=== PATIENT | male | born 1975 | race Caucasian/White ===

== ENCOUNTER 2017-11-12 16:34 | Emergency (ER) | payer MEDICAID, SELFPAY ==
[2017-11-12 16:35] VITALS: BP 147/96; PULSE 98; RESP 16; TEMP 36.6; O2SAT 95; BMI 40.9
[2017-11-12 17:41] LABS: Bacteria 0 SEEN /hpf (None Seen); White Blood Cells 0 SEEN /hpf (0-5)
--- NOTE | 2017-11-12 17:45 | CT_ITS ---
STUDY: CT ABDOMEN AND PELVIS WITHOUT CONTRAST REASON FOR EXAM: Male, 42 years old. Left flank pain RADIATION DOSAGE (If Supplied By Facility): CTDIvol = ( 24.18 ) mGy, DLP = ( 1250.39 ) mGycm TECHNIQUE: Transaxial images were obtained from the dome of the diaphragm to the symphysis pubis without oral contrast, and without intravenous contrast. Sagittal and coronal images were reconstructed. Individualized dose optimization techniques were used for this CT. COMPARISON: None. FINDINGS: The visualized lung bases are unremarkable. The visualized portions of the heart are within normal limits. Slightly fatty liver. Normal gallbladder and extrahepatic biliary system. Normal spleen. Normal pancreas. Normal bilateral adrenal glands. Probably 1 cm hyperdense cyst of the right kidney. Normal left kidney. Normal visualized stomach. Normal small intestine. Questionable mild rectal wall thickening. The appendix is visualized and appears normal. Normal abdominal aorta. Normal inferior vena cava. Normal retroperitoneum. Normal urinary bladder. Normal abdominal wall. Normal osseous structures. CT/Abdomen/Pelvis without Cont IMPRESSION: Probable hyperdense right renal cyst. No renal stones or hydronephrosis bilaterally. Possible mild wall thickening of the rectum. Electronically Signed: Ronni Sutherland DO at 18:53 EDT Tel [phone], Service support ,
--- NOTE | 2017-11-12 17:47 | ED.DCSUM_ITS ---
- ER Visit Summary Date of Service: 11/12/17 Chief Complaint: Left flank pain History of Present Illness: The patient is a 42 M presenting with left flank pain which started at 1 PM. Patient states he has a history of a cyst in his kidney. He was supposed to have 6 month follow-up with a urologist. He states he lost his insurance and did not follow-up. He recently regained his insurance and has an appointment in 3 months. He states this morning he was moving [employer]. He then began having pain in his left lower back. No bowel or bladder incontinence. No numbness or weakness. No blood in his urine. No other complaints. Physical Examination: Vitals are stable. Patient is afebrile. Alert no acute distress. HEENT exam is unremarkable. Neck is supple. Lungs are clear and equal bilaterally. Heart is regular rate and rhythm. Abdomen is soft nontender nondistended. Back: Left CVA tenderness Extremities are unremarkable. Skin is warm and dry. No focal neurologic deficit. Remainder of exam is unremarkable. Emergency Department Course and Treatment: Patient given morphine, Zofran IV with improvement. CBC, chemistries unremarkable. Urinalysis shows trace blood , 0 white cells, 0-[address] abdomen and pelvis shows probable hyperdense right renal cyst. No renal stones or hydronephrosis bilaterally. Possible mild wall thickening of the rectum. He is advised of CT scan findings and advised to follow-up with his urologist and his PCP. Patient understands importance of close follow-up. He is advised return to ED for any worsening complaints. Disposition: Discharge home Impression: Left flank pain This note was generated with [employer] ([employer]) dictation software. It may contain incorrect words, spelling, and punctuation that were not noted in review of the chart prior to signing ED Disposition - Plan for ED Patient: Chief Complaint: Flank Pain Referrals: Doug Jeter DO [Primary Care Provider] -
[2017-11-12 17:53] LABS: Color, Urine Yellow (Yellow); Glucose, Dipstick Normal (Normal); Ketone-Dipstick 5 mg/dl (Negative); Leukocyte Esterase-Dipstick Negative /ul (Negative); Nitrite-Dipstick Negative (Negative); Occult Blood-Urine 10 /ul (Negative); Protein-Dipstick 15 mg/dl (Negative); Specific Gravity, Urine 1.025 (1.002-1.030); Urine Bilirubin Dipstick Negative (Negative); Urine Clarity Sl. Cloudy (Clear); Urine Urobilinogen 1 mg/dl (Normal)
[2017-11-12] MEDS: Morphine 4 MG/ML Syringe IV (18:15)
[2017-11-12] MEDS: Ondansetron 4 MG/2 ML Vial IV (18:16)
[2017-11-12 18:33] LABS: Absolute Neutrophil Count 4.4 X10^3/uL (2.0-7.7); Basophil# 0.03 X10^3/uL; Basophil% 0.4 % (0-1); Eosinophil# 0.22 X10^3/uL; Eosinophils% 3.2 % (0-5); Hematocrit 43.4 % (40-54); Hemoglobin 14.6 g/dl (13.0-16.5); Lymphocyte % 25.9 % (19-41); Mean Corp Hgb Conc 33.6 g/gl (32-36); Mean Corpuscular Volume 92.1 fL (80-94); Mean Platelet Vol. 10.3 fl (6.2-12.0); Monocyte# 0.44 X10^3/uL; Monocyte% 6.3 % (0-10); Neutrophil # 4.44 X10^3/uL (2.7-7.7); Neutrophil % 64.1 % (47-70); Platelet Count 187 K/mm3 (150-450); RBC Distribution Width CV 13.5 % (11.6-14.6); RBC Distribution Width SD 45.2 fl (35.1-43.9); Red Blood Count 4.71 M/mm3 (4.6-6.2); White Blood Count 6.9 K/mm3 (4.4-11.0)
[2017-11-12 18:35] VITALS: RESP 14
[2017-11-12 18:39] LABS: POSITIVE COUNT NO; POSITIVE DIFFERENTIAL NO; POSITIVE MORPHOLOGY NO
[2017-11-12 18:45] LABS: Anion Gap 7 (5-15); BUN 11 mg/dL (7-18); BUN/Creat Ratio 10.7 RATIO (10-20); Calcium,Total 8.4 mg/dL (8.5-10.1); Chloride 108 mmol/L (98-107); Creatinine, Serum 1.03 mg/dL (0.70-1.30); EST Glomerular Filtration Rate 84 mL/min (>60); Est Glom Filt Rate - Afr Amer 102 mL/min (>60); Estimated Creatinine Clearance 108.62 ml/min; Glucose 88 mg/dL (74-106); Sodium Level 143 mmol/L (136-145)
[2017-11-12 18:47] LABS: Mucous, Urine 3+ /hpf (<or=2+); Red Blood Cells-Urine 0-5 SEEN /hpf (0-5); Squamous Epithelial Cells - UA 0-5 SEEN /hpf (0-5)
--- NOTE | 2017-11-12 20:04 | ED.DEP ---
ED Disposition - Plan for ED Patient: Chief Complaint: Flank Pain Instructions: ED Flank Pain Uncertain Cause Prescriptions: Ibuprofen 600 mg PO TID PRN PRN #30 tablet PRN Reason: Pain Referrals: Doug Jeter DO [Primary Care Provider] -
[2017-11-12 20:08] VITALS: BP 149/88; PULSE 74; RESP 16; O2SAT 98
== END 2017-11-12 20:15 | disposition home or self-care (01) ==
PROVIDERS: Emergency Provider Emergency Medicine; Family Provider Pediatrics; PCP Pediatrics
DX: R10.9 Unspecified abdominal pain (principal); I10 Essential (primary) hypertension; Z79.899 Other long term (current) drug therapy
CPT/HCPCS: 74176; 80048; 81001; 85025; 96374; 96375; 99283; A4216; J2405

== ENCOUNTER → 2019-09-13 | Outpatient (CLI) | payer MEDICAID, SELFPAY ==
--- NOTE | 2019-09-13 14:45 | EKG12_ITS ---
Test Reason : PRE OP Blood Pressure : / mmHG Vent. Rate : 062 BPM Atrial Rate : 062 BPM P-R Int : 172 ms QRS Dur : 106 ms QT Int : 412 ms P-R-T Axes : -01 -14 008 degrees QTc Int : 418 ms Normal sinus rhythm Voltage criteria for left ventricular hypertrophy Abnormal ECG Confirmed by ROSEMARY BAEZ, ALYSSA ([id number]), slot editor TY GARCIA ([id number] on 09/14/2019 8:48:25 AM Referred By: Adebayo Hartley Confirmed By:ALYSSA RILEY MD
== END | disposition home or self-care (01) ==
LOC: CVS 14:35
PROVIDERS: PCP Pediatrics; Referring Provider Otolaryngology; Visit Provider Otolaryngology
DX: H65.22 Chronic serous otitis media, left ear (principal)
CPT/HCPCS: 93005

== ENCOUNTER → 2019-09-30 13:41 | Outpatient (CLI) | payer MEDICAID, SELFPAY ==
--- NOTE | 2019-09-30 13:44 | CT_ITS ---
CT lower extremities INDICATION: Arthritis, protocol study TECHNIQUE: Multiple thin section axial CT images of the lower extremities were obtained from the knee joint to the foot without the administration of intravenous contrast and filmed in soft tissue and bone windows. Furthermore, multiple sagittal and coronal reconstructions were performed. FINDINGS: No abnormal soft tissue mass, lymphadenopathy, or fluid collection. No acute fracture or dislocation. No lytic or blastic lesions. 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 Similar osteopenia about the left knee joint. Mild left knee arthrosis and mild left tibiotalar joint arthrosis. 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 Electronically Signed: Ferny Rojo MD at 21:32 EST Tel , Service support , CT/Extremity Lower without Contra
== END ==
PROVIDERS: PCP Family Medicine
DX: M19.079 Primary osteoarthritis, unspecified ankle and foot (principal)
CPT/HCPCS: 73700

== ENCOUNTER 2019-10-11 22:29 | Emergency (ER) | payer MEDICAID, SELFPAY ==
[2019-10-11 22:30] VITALS: BP 163/97; PULSE 84; RESP 18; TEMP 37; O2SAT 97; BMI 43.5
--- NOTE | 2019-10-11 22:51 | ED.VIS.GEN ---
History of Present Illness Chief Complaint: Lower Extremity Injury Narrative: Patient presenting secondary to discomfort from the cast. Patient reports that to me on Thursday of last week at [facility] he had a ankle replacement surgery. He had a cast placed at that time. He reports that he has been dealing with this cast feeling too tight even since they placed it after surgery but they informed him to keep his foot elevated. Patient was [facility] a [facility] today for [facility], and reports that he was unable to elevate his foot for a period of time, and now is having increased pain in the lateral portion of the foot especially in the small toe. He denies any numbness. Patient states that the swelling in his foot seems to be refractory to elevation at this time. He denies any other signs or symptoms. Past Medical History - Allergies and Home Meds Allergies/Adverse Reactions: Allergies No Known Allergies Allergy (Verified 11/12/17 16:38) Primary Care Physician: Malcolm Rodríguez MD [Primary Care Provider] - Past Medical History: - - Noncontributory Surgical History: - - Ankle surgery Smoking Status: Never smoker Review of Systems General: Denies: Chills, Fever Respiratory: Denies: Dyspnea Gastrointestinal: Denies: Nausea, Vomiting Musculoskeletal: Reports: Swelling, Extremity Pain Skin: Denies: Rash Hematologic: Denies: Easy bruising, Easy bleeding Allergy: Denies: Uticaria Physical Exam Vital Signs/Narrative: Vital Signs Temp Pulse Resp BP Pulse Ox 10/11/19 22:30 98.6 F 84 18 163/97 H 97 Inital Vital Signs reviewed: Yes General: Well nourished, Well developed Head: Normocephalic, Atraumatic ENT: Moist mucous membranes Neck: Supple Cardiovascular: Regular rate, Regular rhythm Respiratory: No distress Back: Nontender Extremities: - - Examination of patient's left lower extremity shows a lower leg cast going up to about the level of the calf. Examination of the foot shows slightly delayed capillary refill around 4 seconds with some pallor of the toes. Neurological: Alert, Oriented x3 Psychological: Normal affect Diagnostic/Tx/Re-eval - Medical Decision Making Patient presented secondary to significant pain from a cast that is been in place over the course of the last 5 days. He did have some evidence of decreased circulation, so cast was split along the lateral side as noted in the procedure note. Patient had improvement of his symptoms. He was discharged with outpatient follow-up with orthopedics for recasting. Procedures Procedure(s): Patient had a left short leg cast in place that was causing decreased circulation and pain. Cast cutter tool was utilized, and a single cut was made along the lateral portion of the patient's cast. Cast spreaders were then used to open the cut slightly. Patient had improvement of his pain, and improved capillary refill of the toes. ED Disposition - Plan for ED Patient: Disposition: Home or Assisted Living Diagnosis: Problem with immobilizing cast Instructions: Cast Care Additional Instructions: Followup with your Ortho doc for re-casting
== END 2019-10-11 23:40 | disposition home or self-care (01) ==
PROVIDERS: Emergency Provider Emergency Medicine; PCP Family Medicine
DX: M25.572 Pain in left ankle and joints of left foot (principal)
CPT/HCPCS: 99284; A4216

== ENCOUNTER → 2020-10-06 10:00 | Outpatient (CLI) | payer MEDICAID, SELFPAY ==
--- NOTE | 2020-10-06 10:10 | CT_ITS ---
CT of the left ankle without contrast INDICATION: Ankle pain, history of arthroplasty TECHNIQUE: Multiple thin section axial CT images of the left ankle joint were obtained and filmed in soft tissue and bone windows. Furthermore, multiple sagittal and coronal reconstructions were performed. Dose limiting techniques were utilized. COMPARISON: 09/30/2019 FINDINGS: No abnormal soft tissue mass, lymphadenopathy, or fluid collection. No acute fracture or dislocation. No lytic or blastic lesions. Status post tibiotalar joint arthrodesis with hardware. No radiolucency surrounding the hardware to suggest loosening. IMPRESSION: Status post tibiotalar joint arthroplasty. Electronically Signed: Ferny Rojo MD at 7:54 EST Tel , Service support , CT/Extremity Lower without Contra
== END ==
PROVIDERS: PCP Family Medicine
DX: M19.072 Primary osteoarthritis, left ankle and foot (principal); M65.872 Other synovitis and tenosynovitis, left ankle and foot; M24.572 Contracture, left ankle
CPT/HCPCS: 73700

== ENCOUNTER 2021-02-17 16:51 | Emergency (ER) | payer MEDICARE, MEDICAID, SELFPAY ==
[2021-02-17 16:51] VITALS: BP 161/82; PULSE 81; RESP 16; TEMP 36.7; O2SAT 97; BMI 46.2
--- NOTE | 2021-02-17 17:23 | EX.ED.DYSGE1 ---
HPI History of Present Illness Chief Complaint: Lower Extremity Injury Informant: patient Narrative Narrative: Patient is a 46-year-old male with a past medical history of hypertension who presents to the emergency department for tingling in his left toes. He has a cast over the toes. He had Achilles reconstruction surgery this past Thursday.. He states he had compartment syndrome in that leg before whenever he had a solid cast on. He requested from the surgeon not to provide a solid cast on just splint the leg. Since yesterday started felt tingling in the toes is concerned that the compartment syndrome is coming back. He had a complete ankle reconstruction 1 year ago. He has decreased mobility hence the reason for the surgery recently. He denies any pain going up the leg. No systemic symptoms. He try to get a hold of his surgeon but could not get in contact with them. PFSH PFSH Home Medications ibuprofen 600 mg PO TID PRN PRN #30 tab 11/12/17 [Rx Last Taken Unknown] metoprolol tartrate 25 mg PO DAILY 11/12/17 [History Last Taken Unknown] Allergy/AdvReac Type Severity Reaction Status Date / Time No Known Allergies Allergy Verified 02/17/21 16:57 Social History Smoking Status: Never smoker ROS ROS ED Constitutional Constitutional ED: Denies chills or fever(s) Eyes Eyes: Denies change in vision ENT ENT ED: Denies epistaxis or rhinorrhea Cardiovascular Cardiovascular: Denies chest pain or palpitations Respiratory/Chest Respiratory/Chest: Denies cough or dyspnea Gastrointestinal Gastrointestinal: Denies abdominal pain, nausea or vomiting Musculoskeletal Musculoskeletal: Denies back pain or neck pain Integumentary Denies rash Neurologic Neurologic: Denies dizziness, headache(s) or weakness EXAM Physical Exam Const Vital Signs: 02/17/21 16:51 Temperature 98.0 F Temperature Source Temporal Pulse Rate 81 Respiratory Rate 16 Blood Pressure 161/82 H Blood Pressure Mean 108 Pulse Ox 97 Oxygen Delivery Method Room Air Positive well nourished and well developed General Appearance ED: well developed and NAD HEENT Reports normocephalic and head/scalp atraumatic Eyes PERRL and EOMs intact bilaterally Neck supple Resp normal respiratory effort and clear to auscultation bilaterally Auscultation: Negative for rales, rhonchi or wheezes Cardio regular rate, regular rhythm and no murmurs GI normal to inspection, nondistended, normoactive bowel sounds and non-tender Palpation: soft Extremity Extremity Narrative: Left foot in posterior splint with cast surrounding this. His toes are visible. Capillary refill is 2 seconds. He feels tingling sensation in them. Neuro no sensory deficits noted Sensorium / Orientation: alert Motor Exam: strength 5/5 throughout Psych mental status grossly normal Skin no rashes or lesions noted MDM MDM MDM Narrative Medical decision making narrative: Patient presents the emerge part for concern for compartment syndrome in his left leg. He does have a splint with cast surrounding this. He has tingling in the toes. On arrival to the emerge department he is hypertensive but otherwise normal vital signs. The cast that is surrounding the toes was cut using the cast cutter. He tolerated this well without any complication. He is feeling better with it being cut. I did leave the cast in place and just surrounded this with an Landen wrap. He can adjust the pressure as needed. He is to follow-up with his surgeon in the morning. Return precautions are reviewed. Again no evidence of compartment syndrome on my examination. He is neurovascular intact post wrapping. Impression: 1. Foot pain with splinting 2. Paresthesias Discharge Plan Triage Chief Complaint: Lower Extremity Injury ED Provider: Jefe Thomas Dx/Rx/DC Orders Instructions: Splint Care Prescriptions: No Action metoprolol tartrate 25 MG tablet 25 mg PO DAILY RF: 0 ibuprofen 600 MG tablet 600 mg PO TID PRN PRN (Reason: Pain) Qty: 30 RF: 0 Primary Care Provider: Malcolm Rodríguez Referrals: Malcolm Rodríguez MD [Primary Care Provider] - Activity Restrictions/Additional Instructions: Please follow-up with your surgeon tomorrow. Disposition Disposition: Home, Self Care
== END 2021-02-17 18:09 | disposition home or self-care (01) ==
PROVIDERS: Emergency Provider Emergency Medicine; PCP Family Medicine
DX: M79.673 Pain in unspecified foot (principal); R20.2 Paresthesia of skin
CPT/HCPCS: 99282

== ENCOUNTER 2021-05-13 13:30 | Outpatient (RCR) | payer MEDICARE, MEDICAID, SELFPAY ==
--- NOTE | 2021-03-28 13:58 | HP.PTEVAL_ITS ---
Patient's Visit Information JULIETA CHEUNG is a 46 year old M referred to Physical Therapy by PUJA OLIVER with a diagnosis of L ankle OA, cntracture, neuralgia.. Date of Evaluation: 03/28/21 Physical Therapist: Kiel Painter, DPT, OCS, CSCS - Visit Plan Frequency: 3x /Week Duration: 4-6 Weeks Plan: 3x/week for 6 weeks to start... 1. Teach gym based strength for UE, LE and bike and progress to I with list as safety allows. 2. Manual to L ankle...desensitazation massage to top of foot, MOBS and PROM L ankle and AROM/strength ex/proprioception. 3. Gait training with decreasing AD, balance work, steps. Pt is currently WBAT in boot and once he can walk without pain then we can wean boot. We can do standing weight shifts without boot. - Subjective Turned L ankle in the [employer] 1994 and did not have it treated. February of 2018 L ankle swelled up and turned black. Had therapy and eventual MRI and had a ligament loose. That was fixed and stil had problems. Saw foot doc in [place] and had bone fragments cleaned up. Sent to Dr. jorge who did a full ankle replacement in September 2019. Was to have PT but things were shut down. Ankle seized and on February 15 he had achilles lengthened and adhesions released . 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 Overal has massive scarring in L foot. Is currently on gabapentin for nerve problem and nelson ee pain management. Is on percoset as needed. Been in splint for a while and in boot for last month. Any contact on surface of foot is painful and so no cast and only boot. Pain 2/10 at rest and sometimes to 4/10 and 6/10 if touched. Using scooter to get around. Since Thursday is allowed to put weight through it. Has rollator at home. Was NWB prior to Thursday. Can stand on it, walking hurts. Sleep is interrupted sometimes. elevates legs. L hip can hurt due to elevation. HEP: AP. Not employed due to ankle. Woudl like to do woodworking. Has a wood shop. This is a hobby also. Does basics at home, needs help with shower, bathroom I, helps with shorts for safety. Can do it without her help but quicker that way. Has shower seat and multiple scooter and walkers. Has not been up stairs since recent surgery. Crawls up steps prior to surgery. Pt says he is full weight bearing without boot if he can. Has dynasplint at home not used lately. - Pain L ankle Pain Intensity (Out of 10): 2 Pain Intensity Range: 2, 6 - Objective LWalks with NWB scooter back to eval room today I. Transfer bed and chair I with UE. Steps with R only and much UE on rails and pulling until cued. Railings required for safety. all walking today with boot on and WBAT, Used wh walker to walk 150 feet today approx 40% WB L and stopping R step short until cued. Stayed upright I although obviously hunched. Able to international guest coordinator boot without UE short times but hesitant. Stood without boot with L foot near flat for 40 seconds but tended to WB mostly through R. Painful when cued to get weight through L side. Needed wifes help to don and doff boot today. L foot is swollen and has dry incision on lateral side with moderate scarring. AROM limited to -20 DF 50 PF, 15 in, 20 eversion, PROM very tight and not much better. Painful to touch on top of L foot , max sensitve. MT L with poor mobility, toes very little active movement. Strength PF 3, DF 3 with pain, inv/ev 3. Sensation, hypersensitve top of foot and anterior ankle. Avoids functional DF. FGA not appropriate today but able to stay upright with walker on firm flat surface. - Goals Goal 1:: ST: 2 degrees DF without pain to improve function Goal Time Frame: 2-4 Weeks Goal 2:: Moderate pressure to front of ankle without greater than 1/10 pain Goal Time Frame: 2-4 Weeks Goal 3:: Walk without AD I on firm flat surface without gait deviations Goal Time Frame: 4-6 Weeks Goal 4:: Steps reciprocally without rail Goal Time Frame: 4-6 Weeks Goal 5:: Pt sleep through night without waking. Goal Time Frame: 4-6 Weeks - Rehabilitation Potential Rehabilitation Potential: Fair - Anticipated Interventions Patient/Client Instruction: Educate patient on: Condition, Plan of Care For the Purpose of:: To decrease pain, To increase ROM, To improve muscle performance and motor function Therapeutic Exercise to Include: Strength training, Balance training, Postural training, Flexibilty training, Gait and locomotor training, Neuromotor development, Passive ROM, Active ROM For the Purpose of:: To decrease pain, To increase ROM, To improve muscle performance and motor function, To increase tolerance to activity/condition/position, To decrease level of supervision to perform tasks, To improve gait and locomotor functions, To improve health of tissue Manual Therapy Techniques to Include: Scar massage, Mobilization, Passive ROM Comment: desensitization For the Purpose of:: To decrease pain, To increase ROM Cryotherapy (ice pack, ice massage): Yes For the Purpose of:: To decrease pain, To decrease swelling/inflammation Thank you for the opportunity to evaluate your patient. For Medicare and Medicare HMO plans, please review the plan of care and approve it. It will need to be FAXED BACK to us at [phone] for Medicare purposes. For Medicare only, by signing this I certify the plan of care. Please let me know if there are questions or concerns regarding this plan of care. Physician Signature: Date:
--- NOTE | 2021-04-25 11:50 | HP.PTREVAL ---
PUJA OLIVER, It has been my pleasure to treat JULIETA CHEUNG over the last 7 visits for L ankle OA, cntracture, neuralgia.. Please see the progress note below for an update on the physical therapy plan of care! Subjective: I guess Im getting better. Pain level is OK at rest. 5/10 with trying to put weight through it. To doctor end April. Sleep is not great. Using scooter most of time to get around. Too slow with walker. Scooting on steps as he hbas for 3 years. Objective/Function: Waalks with scooter NWB L I. Walks with wh walker PWB L(min) I, tends to avoid L WB as much as possible and [id number] R step length. Boot is on for ambulation. Trasnfers desiree and table I. AROM -2 DF, 40 PF, 10 inv and eversion . Can wiggle toes easily. Metatarsals at slight deficit mobility on L but very tender to touch. Strength is 4- all ankle motions, unable to attempt heel raise due to pain. Overall doing well with general activity and gym strength. Needs to focus more on ankle motion and WB Plan Plan: Pt to do general strength I at [email or web address]. 3x/week for 3 weeks in PT for... 1. Desensitaization massage to L foot, PROM and AROM and stretch achilles. 2. strengthen specific L ankle. 3. Progress WB in boot and standing balancce ex to gait without AD as tolerated. Slow progression and appropriate to continue with fair prognosis Balance/Gait/Functional tests - Balance/Special Test Scores Lower Extremity Functional Score: 18 Goals Goal 1:: ST: 2 degrees DF without pain to improve function Goal Time Frame: 2-4 Weeks Goal Progress: Progressing Goal 2:: Moderate pressure to front of ankle without greater than 1/10 pain Goal Time Frame: 2-4 Weeks Goal Progress: Progressing Goal 3:: Walk without AD I on firm flat surface without gait deviations Goal Time Frame: 4-6 Weeks Goal Progress: slow Goal 4:: Steps reciprocally without rail Goal Time Frame: 4-6 Weeks Goal 5:: Pt sleep through night without waking. Goal Time Frame: 4-6 Weeks Anticipated Interventions Patient/Client Instruction: Educate patient on: Condition, Plan of Care For the Purpose of:: To decrease pain, To increase ROM, To improve muscle performance and motor function Therapeutic Exercise to Include: Strength training, Balance training, Postural training, Flexibilty training, Gait and locomotor training, Neuromotor development, Passive ROM, Active ROM For the Purpose of:: To decrease pain, To increase ROM, To improve muscle performance and motor function, To increase tolerance to activity/condition/position, To decrease level of supervision to perform tasks, To improve gait and locomotor functions, To improve health of tissue Manual Therapy Techniques to Include: Scar massage, Mobilization, Passive ROM Comment: desensitization For the Purpose of:: To decrease pain, To increase ROM Cryotherapy (ice pack, ice massage): Yes For the Purpose of:: To decrease pain, To decrease swelling/inflammation Please do not hesitate to contact me at [phone] by phone or if you have questions or concerns regarding this new plan of care! Sincerely, Kiel Painter, DPT, OCS, CSCS
--- NOTE | 2021-07-01 14:21 | HP.PT.NRP ---
JULIETA CHEUNG was seen in my office for initial evaluation on 03/28/21. The following Plan of Care was established for this patient: Initial Frequency: 3x /Week Initial Duration: 4-6 Weeks Patient/Client Instruction: Educate patient on: Condition, Plan of Care For the Purpose of:: To decrease pain, To increase ROM, To improve muscle performance and motor function Therapeutic Exercise to Include: Strength training, Balance training, Postural training, Flexibilty training, Gait and locomotor training, Neuromotor development, Passive ROM, Active ROM For the Purpose of:: To decrease pain, To increase ROM, To improve muscle performance and motor function, To increase tolerance to activity/condition/position, To decrease level of supervision to perform tasks, To improve gait and locomotor functions, To improve health of tissue Manual Therapy Techniques to Include: Scar massage, Mobilization, Passive ROM Comment: desensitization For the Purpose of:: To decrease pain, To increase ROM Cryotherapy (ice pack, ice massage): Yes For the Purpose of:: To decrease pain, To decrease swelling/inflammation This patient was last seen in our office 05/13/21. Pertinent comments regarding their Physical therapy will appear below: Pt seen 9 visits of POC adn was 20% better at last recheck. He cancelled his last 3 scheduled visits and I will disocntinue due to nonattendance. At this point I will be discontinuing this patient from physical therapy. I would be happy to see this patient again in the future if found appropriate by the physician. Thank you! Kiel Painter, DPT, OCS, CSCS Balance/Gait/Functional tests - Balance/Special Test Scores Lower Extremity Functional Score: 18
== END 2021-05-13 19:00 | disposition home or self-care (01) ==
LOC: PT 13:30
PROVIDERS: PCP Family Medicine
DX: M19.072 Primary osteoarthritis, left ankle and foot (principal); M24.572 Contracture, left ankle; M79.2 Neuralgia and neuritis, unspecified
CPT/HCPCS: 97110; 97140; 97162; 97530

== ENCOUNTER 2022-03-17 13:00 | Outpatient (RCR) | payer MEDICARE, MEDICAID, SELFPAY ==
--- NOTE | 2022-02-12 15:11 | HP.PTEVAL ---
Patient's Visit Information JULIETA CHEUNG is a 47 year old M referred to Physical Therapy by Dr. Isak Cates MD with a diagnosis of L ankle surgery/pain. Date of Evaluation: 02/12/22 Physical Therapist: Ta Watkins PT, ATC - Visit Plan Frequency: 3x /Week Duration: 4-6 Weeks Plan: 05-05 - Subjective DOS: 01/11/22. Pt reports he has had 5 surgeries in the past. Pt notes this last surgery was to remove bone that had grown over the plastic segment of his L ankle replacement. 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 Pt notes he is in more pain now than prior to having his L ankle surgery. Pt reports he is happy to be in therapy at this time because he is looking to get better. Pt reports he hasnt walked on his L LE normal for over 4 years. Pt reports he has not been able to work for the last 3 years secondary to pain. 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 Pt reports he has weird neurological pain at this time as his dorsal foot is numb and the rest of his foot is hyposensitive. Pt reports he has stairs at home that he is unable to negotiate secondary to pain. 3/10 pain at rest, 6/10 pain at worst. - Pain L ankle Pain Intensity (Out of 10): 3 Pain Intensity Range: 6 - Objective Neuro: B LE sensation is WNL to light touch. Pt is hyposenssitive to light touch throughout. Girth: R LE 68 cm, L LE 69 cm. ROM: R ankle DF= 6, PF= 50; L ankle DF= -10, PF= 30. MMT: R LE is 5/5 throughout. L LE is 2-/5 and painful - Balance/Special Test Scores Lower Extremity Functional Score: 17 - Goals Goal 1:: Increase L ankle strength x 1 grade to aid with stair negotioation Goal Time Frame: 4-6 Weeks Goal 2:: Increase L ankle DF ROM x 20 degrees to aid with restoring a more normalized gait pattern Goal Time Frame: 4-6 Weeks Goal 3:: Decrease L ankle pain x 50% to aid with sleep Goal Time Frame: 4-6 Weeks Goal 4:: I with HEP Goal Time Frame: 4-6 Weeks - Rehabilitation Potential Physical Therapy Diagnosis: Pt has L ankle pain, limited ROM, and weakness secondary to L ankle surgery Rehabilitation Potential: Good - Anticipated Interventions Patient/Client Instruction: Educate patient on: Condition, Plan of Care For the Purpose of:: To improve self management Therapeutic Exercise to Include: Strength training, Endurance training, Balance training, Flexibilty training, Passive ROM, Active ROM For the Purpose of:: To decrease pain, To increase ROM, To improve muscle performance and motor function Thank you for the opportunity to evaluate your patient. For Medicare and Medicare HMO plans, please review the plan of care and approve it. It will need to be FAXED BACK to us at [phone] for Medicare purposes. For Medicare only, by signing this I certify the plan of care. Please let me know if there are questions or concerns regarding this plan of care. Physician Signature: Date:
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
--- NOTE | 2022-05-06 13:25 | HP.PT.NRP ---
JULIETA CHEUNG was seen in my office for initial evaluation on 02/12/22. The following Plan of Care was established for this patient: Initial Frequency: 3x /Week Initial Duration: 4-6 Weeks Patient/Client Instruction: Educate patient on: Condition, Plan of Care For the Purpose of:: To improve self management Therapeutic Exercise to Include: Strength training, Endurance training, Balance training, Flexibilty training, Passive ROM, Active ROM For the Purpose of:: To decrease pain, To increase ROM, To improve muscle performance and motor function This patient was last seen in our office . Pertinent comments regarding their Physical therapy will appear below: Pt was treated for L ankle pain for 2 PT visits through the date of 03/17/22. Pt has not returned through todays date and is discontinued at this time. At this point I will be discontinuing this patient from physical therapy. I would be happy to see this patient again in the future if found appropriate by the physician. Thank you! Ta Watkins, PT, ATC Balance/Gait/Functional tests - Balance/Special Test Scores Lower Extremity Functional Score: 17
== END 2022-03-17 19:00 | disposition home or self-care (01) ==
LOC: PT 13:00
PROVIDERS: PCP Family Medicine; Referring Provider Podiatrist Foot & Ankle Surgery; Visit Provider Podiatrist Foot & Ankle Surgery
DX: M19.072 Primary osteoarthritis, left ankle and foot (principal); M24.572 Contracture, left ankle
CPT/HCPCS: 97110; 97161

== ENCOUNTER 2023-06-29 15:30 | Emergency (ER) | payer MEDICARE, MEDICAID, SELFPAY ==
[2023-06-29 15:32] VITALS: BP 175/105; PULSE 70; RESP 18; TEMP 36.8; O2SAT 96
--- NOTE | 2023-06-29 16:14 | ED.VIS.LOWEX ---
HPI History of Present Illness Chief Complaint: Wound Check Detail of Chief Complaint: Wound to left lower extremity Informant: patient Narrative Narrative: Patient presents to the emergency department with a wound to his left lower extremity at the site of his below the knee amputation. Patient had a below the knee amputation in September at a different facility. A week and a half ago patient noticed the wound to his stump. He does not recall any injury to the area. Patient has not been wearing his prosthesis for over 3 weeks now because of some phantom pain and does not believe it is related to pressure on the wound. Denies fevers or chills or sweats. He has noticed some serous drainage from the wound at times and it did bleed in the shower today. He was referred to the ER by urgent care for evaluation. Patient states the wound does not have any odor to it and he has not been feeling ill. [facility] Medical History (Updated 06/29/23 @ 16:[address] Sherrell Rodas DO) History of left below knee amputation Hypertension Home Medications ibuprofen 600 mg tablet 600 mg PO TID PRN PRN Pain #30 tabs 11/12/17 [Rx Last Taken Unknown] metoprolol tartrate 25 mg tablet 25 mg PO DAILY 11/12/17 [History Last Taken Unknown] Allergy/AdvReac Type Severity Reaction Status Date / Time lamotrigine Allergy Other Verified 06/29/23 15:32 Social History Smoking Status: Never smoker ROS ROS ED Review of Systems ROS Unobtainable: other Constitutional Constitutional ED: Reports lethargy; Denies chills, fever(s), sweats or weight loss Eyes Eyes: Denies blurry vision, change in vision or diplopia ENT ENT ED: Denies rhinorrhea or sore throat Cardiovascular Cardiovascular: Reports chest pain; Denies orthopnea or racing heartbeat Respiratory/Chest Respiratory/Chest: Denies cough, dyspnea, dyspnea on exertion, orthopnea or sputum Gastrointestinal Gastrointestinal: Denies abdominal pain, diarrhea, nausea or vomiting Genitourinary Genitourinary ED: Denies dysuria, hematuria or urinary frequency Musculoskeletal Musculoskeletal: Reports other Details: Extremity wound ; Denies arthralgias, back pain, myalgias or neck pain Integumentary Denies abscess, Abrasions or rash Neurologic Neurologic: Denies headache(s) or weakness Psychiatric Psychiatric: Denies anxiety, depression or suicidal thoughts Endocrine Endocrinology: Denies polydipsia, polyphagia or polyuria Hematologic/Lymphatic Hematologic/Lymphatic: Denies easy bleeding, easy bruising or lymphadenopathy Allergic/Immunologic Allergic/Immunologic ED: Denies mouth swelling, tongue swelling or urticaria EXAM Physical Exam Const Vital Signs: 06/29/23 15:32 Temperature 98.2 F Temperature Source Temporal Pulse Rate 70 Respiratory Rate 18 Blood Pressure 175/105 H Blood Pressure Mean 128 Pulse Ox 96 Oxygen Delivery Method Room Air Positive well nourished and well developed General Appearance ED: well developed and NAD HEENT Reports TM's clear and moist mucous membranes normocephalic and atraumatic; Negative for trauma or tenderness Tympanic Membrane ED: Yes TM's clear Eyes PERRL and EOMs intact bilaterally General Eye ED: Negative for pale conjunctiva or scleral icterus Neck no lymphadenopathy, supple and no JVD General: Negative for tenderness Chest Wall inspection of chest normal and palpation of chest normal Chest: Negative for tenderness Resp normal respiratory effort and clear to auscultation bilaterally Effort and Inspection: Negative for respiratory distress or pain with movement Auscultation: Negative for rhonchi, wheezes or diminished lung sounds Cardio regular rate, regular rhythm, S1 normal heart sound, S2 normal heart sound and no murmurs Peripheral Pulses: pulses 2+ throughout GI normal to inspection, nondistended, normoactive bowel sounds, soft to palpation, non-tender, non-distended and no masses Back/Spine no CVA tenderness and no thoracic nor lumbar tenderness Extremity normal to inspection Extremity Narrative: Left lower extremity-patient has left below-knee amputation. Along the suture line patient has a 1 cm in diameter wound without any active bleeding or purulent drainage. There is no erythema or warmth noted. General Extremety ED: Negative for edema General Extremity: Negative for edema Neuro oriented x3, CN's II-XII intact bilaterally, no sensory deficits noted and gait normal Sensorium / Orientation: awake, alert, oriented to person, oriented to place and oriented to time Motor Exam: strength 5/5 throughout and strength abnormal Psych mental status grossly normal Skin no rashes or lesions noted and no wounds MDM MDM MDM Narrative Medical decision making narrative: I did obtain a wound culture of the wound. We will obtain an x-ray of the area to evaluate further. Clinically the wound does not appear infected. X-ray of the left tib-fib obtained showed no evidence of gas within the tissues or bony abnormalities on my interpretation. There is no foreign bodies. Patient will have clean dressing applied. I do not feel the wound is grossly infected and do not feel he requires p.o. antibiotics. Recommended that he follow-up with the surgeon he was referred to as this the slight dehiscence is along the suture line and if it does not heal may need further evaluation by surgery. Patient advised to return if fever, redness, swelling, purulent bandage with foul odor, or condition should worsen anyway. I advised not to use prosthesis and apply pressure to the area until the wound is healed. Radiography Diagnostic Testin view x-rays of left tib-fib obtained interpreted by myself as no evidence of gas within the tissues and no bony abnormality noted. There is no evidence of foreign bodies within the soft tissues. Discharge Plan Triage Chief Complaint: Wound Check ED Provider: Sherrell Rodas Dx/Rx/DC Orders Clinical Impression: Leg wound, left Instructions: ED Wound Check (No Infection) Prescriptions: No Action metoprolol tartrate 25 MG tablet 25 mg PO DAILY Patient Comments: take 1 tablet by mouth once daily ibuprofen 600 MG tablet 600 mg PO TID PRN PRN (Reason: Pain) Qty: 30 0RF Primary Care Provider: Malcolm Rodríguez Referrals: Malcolm Rodríguez MD [Primary Care Provider] - Activity Restrictions/Additional Instructions: Follow-up with your surgeon within the next 5 to 7 days. With pressure to the area until the wound is healed. Do not wear your prosthesis until wound healed. Disposition Disposition: Home, Self Care
--- NOTE | 2023-06-29 16:25 | RAD_ITS ---
STUDY: X-RAY - LEFT TIBIA AND FIBULA REASON FOR EXAM: Male, 48 years old. wound TECHNIQUE: 2 view(s) of the tibia and fibula were obtained. COMPARISON: None. FINDINGS: Sguja-jjb-[id number] amputation with the proximal one third tibia and fibula remaining. No visualized subcutaneous gas. No x-ray evidence of osteomyelitis. No radiopaque foreign bodies are present. No visualized acute fractures. A moderate narrowing of the knee joint noted. The soft tissue structures are unremarkable. RAD/Tibia & Fibula 2 Views IMPRESSION: No x-ray evidence of osteomyelitis. Electronically Signed: Abe Ramirez MD at 17:11 [facility] ,
[2023-06-29 17:07] VITALS: BP 154/104; PULSE 75; RESP 18; O2SAT 96
== END 2023-06-29 17:08 | disposition home or self-care (01) ==
PROVIDERS: Emergency Provider Emergency Medicine; PCP Family Medicine; Visit Provider Emergency Medicine
DX: S81.802A Unspecified open wound, left lower leg, initial encounter (principal); X58.XXXA Exposure to other specified factors, initial encounter
CPT/HCPCS: 73590; 87070; 87205; 99282

== ENCOUNTER 2025-06-21 08:12 | Emergency (ER) | payer MEDICARE, MEDICAID, SELFPAY ==
[2025-06-21 08:12] VITALS: BP 191/93; PULSE 89; RESP 16; TEMP 36.8; O2SAT 96; BMI 40.4
[2025-06-21] MEDS: fentaNYL 100 MCG/2 ML Ampul 50 MCG IV (08:40)
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
[2025-06-21 10:08] VITALS: BP 140/70; PULSE 80; RESP 16; TEMP 36.8; O2SAT 99
== END 2025-06-21 10:00 | disposition home or self-care (01) ==
PROVIDERS: Emergency Provider Emergency Medicine; PCP Family Medicine; Visit Provider Emergency Medicine
DX: T24.211A Burn of second degree of right thigh, initial encounter (principal); Z89.512 Acquired absence of left leg below knee; E11.9 Type 2 diabetes mellitus without complications; T31.0 Burns involving less than 10% of body surface; T21.26XA Burn of second degree of male genital region, initial encounter; X12.XXXA Contact with other hot fluids, initial encounter; I10 Essential (primary) hypertension; Z23 Encounter for immunization; E66.9 Obesity, unspecified; Z79.899 Other long term (current) drug therapy
CPT/HCPCS: 90471; 90715; 96374; 96375; 99284; A4216; J2405

== ENCOUNTER 2025-06-28 10:53 | Emergency (ER) | payer MEDICARE, MEDICAID, SELFPAY ==
[2025-06-28 10:55] VITALS: BP 162/104; PULSE 91; RESP 18; TEMP 36.6; O2SAT 98
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
[2025-06-28 13:20] VITALS: BMI 41.5
[2025-06-28 13:21] LABS: Hematocrit 50.2 % (40-54); Hemoglobin 17.1 g/dL (13.0-16.5); Immature Granulocytes Count 0.020 X10^3/uL (0.0-0.0); Mean Corp Hgb Conc 34.1 g/dL (32-36); Mean Corpuscular Volume 89.5 fL (80-94); Mean Platelet Vol. 10.4 fl (6.2-12.0); NRBC Flagged by Analyzer 0 % (0-5); Platelet Count 248 K/mm3 (150-450); RBC Distribution Width CV 12.4 % (11.6-14.6); RBC Distribution Width SD 41.0 fl (35.1-43.9); Red Blood Count 5.61 M/mm3 (4.6-6.2); White Blood Count 8.7 K/mm3 (4.4-11.0)
[2025-06-28 13:56] LABS: Anion Gap 11 (5-15); BUN 14 mg/dL (4-19); BUN/Creat Ratio 15.9 RATIO (10-20); CRP 30.60 mg/L (0.0-3.0); Calcium,Total 9.3 mg/dL (7.6-11.0); Carbon Dioxide 25.1 mmol/L (21.0-32.0); Chloride 102 mmol/L (98-108); Estimated Creatinine Clearance 153.35 ml/min (50-250); Glucose 175 mg/dL (70-99); Potassium 4.4 mmol/L (3.3-5.1)
[2025-06-28 14:04] VITALS: BP 161/93; PULSE 72; RESP 18; TEMP 37.2; O2SAT 96
[2025-06-28 15:53] VITALS: BP 133/100; PULSE 71; RESP 16; O2SAT 96
[2025-06-28 16:48] VITALS: BP 110/86; PULSE 71; RESP 16; TEMP 37.2; O2SAT 96
--- NOTE | 2025-06-28 17:09 | ED.RN ---
jenny groin gently cleansed with normal saline, applied bacatricin, vaseline GAZE, TELFA AND LIGHTLY APPLIED ABD, MESH PANTY PUT ON PT. STACIE WELL.
== END 2025-06-28 17:23 | disposition home or self-care (01) ==
PROVIDERS: Emergency Provider Emergency Medicine; PCP Family Medicine; Visit Provider Emergency Medicine
DX: T24.211A Burn of second degree of right thigh, initial encounter (principal); Z89.512 Acquired absence of left leg below knee; J44.9 Chronic obstructive pulmonary disease, unspecified; E11.9 Type 2 diabetes mellitus without complications; T24.212A Burn of second degree of left thigh, initial encounter; T21.26XA Burn of second degree of male genital region, initial encounter; X12.XXXA Contact with other hot fluids, initial encounter; I10 Essential (primary) hypertension; Z79.899 Other long term (current) drug therapy
CPT/HCPCS: 80048; 85025; 86140; 96374; 96375; 99283; A4216; J2405